=== PATIENT | female | born 1995 | race Caucasian/White ===

== ENCOUNTER 2019-10-18 08:47 | Emergency (ER) | payer OTHER ==
[~2019-10-18] VITALS: Ht 152.4 cm; Wt 41.7 kg
[2019-10-18 09:02] VITALS: BP 110/73
--- NOTE | 2019-10-18 09:43 | NUR ---
Patient discharged to home in stable condition. Written and verbal after care instructions given. Patient verbalizes understanding of instruction.
== END 2019-10-18 09:43 | disposition home or self-care (01) ==
LOC: ER 08:59
DX: D17.5 Benign lipomatous neoplasm of intra-abdominal organs (principal)

== ENCOUNTER → 2025-04-15 | Emergency (ER) | payer OTHER ==
[~2025-04-15] VITALS: Ht 152.4 cm; Wt 49.9 kg
[~2025-04-15] MED LIST: TDAP [DIPH/PERTUSSIS/TET] 0.5 ML VIAL IM ONE
[2025-04-15 16:03] VITALS: BP 108/70; TEMP 98.3; O2SAT 97
[2025-04-15] MEDS: TDAP [DIPH/PERTUSSIS/TET] 0.5 ML VIAL IM ONE (16:28)
== END | disposition home or self-care (01) ==
LOC: ER 16:42
DX: S61.210A Laceration without foreign body of right index finger without damage to nail, initial encounter (principal); Y09 Assault by unspecified means; Y93.89 Activity, other specified; Y92.89 Other specified places as the place of occurrence of the external cause; Y99.8 Other external cause status
CPT/HCPCS: 99282; A6403; 90715